=== PATIENT | female | born 1955 | race Caucasian/White ===

== ENCOUNTER → 2021-12-07 10:20 | Outpatient (CLI) | payer MEDICARE, SELFPAY ==
--- NOTE | ~2021-12-07 | XR_ITS ---
EXAM: XR finger 1st LT min 2V DATE: 12/07/2021 10:43 HISTORY: psoriatic arthritis PAIN IN THUMB FOR 1 MONTH NO INJURY . COMPARISON: None available. FINDINGS: Normal mineralization. No fracture or dislocation. No lytic or blastic lesion. Osteoarthri tic change, mild at the trapeziometacarpal and MCP joints, moderate at the interphalangeal joint. No erosion or periosteal change. Soft tissues within normal limits. IMPRESSION: Mild-moderate osteoarthritic change in the left thumb. Reviewed, dictated and finalized at location K.
== END ==
PROVIDERS: PCP Family Medicine
DX: L40.52 Psoriatic arthritis mutilans (principal); R60.9 Edema, unspecified; Z13.89 Encounter for screening for other disorder; M19.042 Primary osteoarthritis, left hand
CPT/HCPCS: 73140

== ENCOUNTER → 2022-08-02 10:46 | Outpatient (CLI) | payer MEDICARE, SELFPAY ==
--- NOTE | ~2022-08-02 | XR_ITS ---
XR hand LT min 3V 08/02/2022 11:18 Indication: Left thumb pain. Swelling. Procedure: 3 views left hand Comparison: 12/07/2021 Findings: There is polyarticular osteoarthritis of the left hand and wrist. No fracture, subluxation or dislocation. No erosive changes. No focal soft tissue abnormality. No foreign bodies. No erosive c hanges. 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 Reviewed, dictated and finalized at location L. 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
== END ==
PROVIDERS: PCP Family Medicine; Visit Provider Plastic Surgery
DX: M10.9 Gout, unspecified (principal); M19.042 Primary osteoarthritis, left hand; M19.032 Primary osteoarthritis, left wrist
CPT/HCPCS: 73130

== ENCOUNTER 2023-10-18 22:24 | Emergency (ER) | payer MEDICARE, SELFPAY ==
--- NOTE | ~2023-10-18 | XR_ITS ---
EXAMINATION: XR chest 1V portable DATE: 10/18/2023 23:37 INDICATION: Near syncope. TECHNIQUE: A single frontal view of the chest was obtained. COMPARISON: Chest 2 views 07/04/16 FINDINGS: There is no pneumonia, pleural effusion, or pneumothorax. The heart size is normal. Partial ly visualized is a fracture of proximal left humerus. IMPRESSION: 1. No acute cardiopulmonary disease. 2. Partially visualized fracture of proximal left humerus. Reviewed, dictated and finalized at location A.
[2023-10-18 22:24] VITALS: BP 175/83; PULSE 87; RESP 14; O2SAT 100
--- NOTE | 2023-10-18 22:30 | ECG_ITS ---
Test Date: 2023-10-18 22:43:36 Measurements Intervals [place] Rate: P: 0 [place]: 0 QRS: 0 QRSD: 0 T: 0 QT: 0 QTc: 0 Interpretive Statements SINUS RHYTHM NORMAL ELECTROCARDIOGRAM No previous ECG available for comparison Electronically Signed On 10-19-2023 13:18:12 CDT by Quinn Neff M.D.
[2023-10-18 22:59] LABS: Basophils Absolute Auto 0.1 K/mm3 (0.0-0.1); Basophils Percent Auto 0.8 % (0.2-1.2); Eosinophils Absolute Auto 0.4 K/mm3 (0-0.3); Eosinophils Percent Auto 3.5 % (0-4.4); Hematocrit 36.9 % (37.0-47.0); Hemoglobin 11.8 g/dL (12.0-15.0); Immature Granulocyte Absolute 0.04 K/mm3 (0.00-0.031); Immature Granulocyte Percent A 0.4 % (0-0.5); Lymphocytes Absolute Auto 3.42 K/mm3 (0.9-3.2); Lymphocytes Percent Auto 32.5 % (18.3-44.2); Mean Corpuscular Hemoglobin 27.8 pg (26-34); Mean Corpuscular Volume 86.8 fl (80-100); Mean Platelet Volume 10.1 fl (7.4-10.4); Monocytes Absolute Auto 0.7 K/mm3 (0.1-0.6); Monocytes Percent Auto 6.9 % (2.6-8.5); Neutrophils Absolute Auto 5.9 K/mm3 (1.3-6.7); Neutrophils Percent Auto 55.9 % (45.5-73.1); Platelet Count Result 356 k/mm3 (150-375); Red Blood Count 4.25 M/mm3 (4.2-5.4); Red Cell Distribution Width 14.3 % (11.5-14.5); White Blood Count 10.5 K/mm3 (4.5-10.0)
[2023-10-18 23:00] VITALS: BP 146/86; PULSE 82; RESP 14; O2SAT 100
[2023-10-18 23:09] LABS: Alanine Aminotransferase 24 U/L (6-35); Albumin Level 4.7 g/dL (3.5-5.1); Alkaline Phosphatase 124 U/L (38-126); Anion Gap 14 mmol/L (4-12); Aspartate Amino Transferase 34 U/L (14-36); Bilirubin,Total 0.4 mg/dL (0.2-1.3); Blood Urea Nitrogen 18 mg/dL (7-17); Calcium 9.5 mg/dL (8.4-10.2); Carbon Dioxide 23 mmol/L (22-30); Chloride 99 mmol/L (98-107); Estimated CRCL calculation 67 ml/min; Estimated Glomerular Filt Rate > 60; Glucose 120 mg/dL (65-110); Potassium 3.9 mmol/L (3.4-5.0); Sodium 136 mmol/L (137-145)
--- NOTE | 2023-10-18 23:31 | ED.DIZZY ---
HPI - Dizziness General Chief Complaint: Syncope Stated Complaint: Near syncope with palpitations Time Seen by Provider: 10/18/23 22:28 Source: patient Mode of arrival: ambulatory Limitations: no limitations History of Present Illness HPI Narrative: This is a 67-year-old female who presents to the ED via EMS for chief complaint of near-syncope. Patient reports that she was standing up and attempting to open a jar. She states that she felt some palpitations that she has been feeling for several years intermittently. She states that this time the palpitations seem to have a long pause in between heartbeats she started hitting her chest because she thought that her heart stopped. Patient states this happens a lot but this time I felt myself going down. States that she became near syncopal was able to lower herself and did not fully syncopize. Reports the episode lasted around 5 minutes in that she is asymptomatic while lying in the gurney. Denies fevers, chills, chest pain, shortness of breath, cough, back pain, abdominal pain, nausea, vomiting, sweats. Related Data Allergies Allergy/AdvReac Type Severity Reaction Status Date / Time No Known Allergies Allergy Unverified 01/13/18 17:13 Review of Systems Review of Systems: All systems as dictated in [facility] Family History Family History (Updated 12/21/16 @ 10:09 by DOCTOR UNKNOWN) Sibling Carcinoma of colon Family history of malignant neoplasm of breast in first degree relative Mother Family history of emphysema, Onset Age: 61 Social History Social History Smoking status: Former smoker Smoking end date: 02/21/88 Alcohol intake: current Exam Narrative: GENERAL: Well-appearing, well-nourished, and in no acute distress. HEAD: Normocephalic, atraumatic. EYES: PERRLA and EOMI. ENT: Nares clear, no rhinorrhea or epistaxis. Mucous membranes moist. Oropharynx without tonsillar hypertrophy exudate or other lesions. NECK: Supple. No adenopathy or masses. CHEST: No respiratory distress. Clear to auscultation. No wheezes rales or rhonchi HEART: Regular rate and rhythm. No murmur heard. Normal peripheral pulses. ABDOMEN: Soft, nontender, nondistended, normal active bowel sounds. MSK: Normal range of motion. No edema. SKIN: Warm, dry, no rash. NEURO: Alert and oriented x4. No focal deficits. PSYCH: Normal mood and affect. Course Vital Signs Vital signs: Vital Signs Pulse Rate 87 10/18/23 22:24 Respiratory Rate 14 10/18/23 22:24 Blood Pressure 175/83 H 10/18/23 22:24 Pulse Oximetry 100 10/18/23 22:24 Oxygen Delivery Room Air 10/18/23 22:24 Pulse Rate 87 10/19/23 01:00 Respiratory Rate 14 10/18/23 22:24 Blood Pressure 129/71 10/19/23 01:00 Pulse Oximetry 100 10/18/23 22:24 Oxygen Delivery Room Air 10/18/23 22:24 MDM - Dizziness MDM Narrative Medical decision making narrative: this is a 67-year-old female who presents to the ED with chief complaint of palpitations and near syncope. Vitals initially show elevated blood pressure but otherwise normal. Exam is benign. She is asymptomatic upon arrival to the ED. no dysrhythmia seen on battery tester field. ECG shows normal sinus rhythm. Troponin normal and lab work is unremarkable. Orthostatic blood pressures were positive today. Chest x-ray is negative. She feels well enough to go home on re-evaluation. Offered admission for cardiac monitoring but patient politely declines. She will follow-up with her PCP. Pt will be discharged in stable condition. Return precautions given and supportive measures discussed. Lab Data 10/18/23 22:46 10/18/23 22:46 Labs: Lab Results 10/18/23 Range/Units 22:46 WBC 10.5 H (4.5-10.0) K/mm3 RBC 4.25 (4.2-5.4) M/mm3 Hgb 11.8 L (12.0-15.0) g/dL Hct 36.9 L (37.0-47.0) % MCV 86.8 (80-100) fl MCH 27.8 (26-34) pg MCHC 32.0 (32-36) g/dl RDW 14.
--- NOTE | 2023-10-19 00:19 | ECG_ITS ---
Test Date: 2023-10-19 00:52:54 Measurements Intervals [place] Rate: 78 P: 54 [place]: 153 QRS: 26 QRSD: 84 T: 44 QT: 379 QTc: 433 Interpretive Statements SINUS RHYTHM NORMAL ELECTROCARDIOGRAM Compared to ECG 10/18/2023 22:43:36 No significant changes Electronically Signed On 10-19-2023 13:19:09 CDT by Quinn Neff M.D.
[2023-10-19 00:24] LABS: Troponin I < 0.012 ng/mL (0.000-0.034)
[2023-10-19 00:56] VITALS: BP 146/86; BP 161/83; PULSE 80; PULSE 89
[2023-10-19 01:00] VITALS: BP 129/71; PULSE 87
== END 2023-10-19 01:15 | disposition home or self-care (01) ==
PROVIDERS: Emergency Provider Physician Assistant
DX: I95.1 Orthostatic hypotension (principal); Z87.891 Personal history of nicotine dependence
CPT/HCPCS: 36415; 71045; 80053; 84484; 85025; 93005; 99284

== ENCOUNTER 2024-01-30 13:15 | Outpatient (CLI) | payer MEDICARE, SELFPAY ==
--- NOTE | ~2024-01-30 | CT_ITS ---
EXAMINATION: CT shoulder LT w con DATE: 01/30/2024 14:59 INDICATION: Left shoulder pain. TECHNIQUE: Computed tomography (CT) of the left shoulder was performed without intravenous contrast a fter intra-articular injection of contrast (CT arthrogram). Automated exposure control and iterative reconstruction technique were employed. The dose-length product was 388.53 mGy-cm. COMPARISON: Chest single view 10/18/2023 FINDINGS: Alignment is normal. There is a healing comminuted fracture of proximal humerus. At the skinny gical neck, the main distal fracture fragment demonstrates impaction. There is a displaced fracture c omponent involving the greater tuberosity at the attachment of infraspinatus tendon. There is heterot opic ossification medial to the lesser tuberosity. The glenohumeral joint demonstrates partial-thickn ess cartilage loss and osteophytes. There is severe acromioclavicular joint osteoarthritis. There is contrast in the glenohumeral joints. Contrast anterior to the glenohumeral joint is likely iatrogenic . There is shallow partial-thickness fraying of supraspinatus and infraspinatus tendons. Contrast pas ses from the glenohumeral joint to the subacromial/subdeltoid bursa at the site of the displaced grea ter tuberosity fracture. The biceps tendon is in bicipital groove. The biceps tendon is normal in mor phology. There is an articular-sided partial thickness tear of subscapularis tendon. IMPRESSION: 1. Healing three-part fracture of proximal left humerus. 2. Articular-sided partial-thickness tears of the rotator cuff. 3. Mild glenohumeral joint chondrosis. 4. Severe acromioclavicular joint osteoarthritis. Reviewed, dictated and finalized at location A. LLIGENCE OPERATIONS SPECIALIST
--- NOTE | ~2024-01-30 | CT_ITS ---
Noncontrast CT scan of the lumbar spine CLINICAL HISTORY: Back pain, sciatica TECHNIQUE: Axial noncontrast imaging of the lumbar spine was performed. Sagittal and coronal reformat jing images were constructed. Dose reduction technique was used on this scan by utilizing automated ex posure control and iterative reconstruction technique. The dose-length product (DLP) was 726.31 mGy-c m. FINDINGS: There is no fracture of the lumbar spine. There is minimal grade 1 retrolisthesis of L3 ove r L4. At L1-L2, there is mild degenerative disc narrowing. No disc bulge or herniation evident. There is mo derate facet arthropathy. No central canal stenosis or neural foraminal narrowing evident. At L2-L3, there is severe degenerative spurring. There is mild disc ossify complex with moderate to a dvanced facet arthropathy. There is mild to moderate central canal stenosis/thecal sac compression. N eural foramina are relatively well-preserved. At L3-L4, there is severe degenerative disc narrowing. There is advanced facet arthropathy with mild disc bulge. There is moderate or spinal canal stenosis/thecal sac compression. There is moderate to a dvanced right neural foraminal narrowing. There is mild left neural foraminal narrowing. At L4-L5, there is severe degenerative disc narrowing. There is disc bulge with moderate to advanced facet arthropathy. There is mild to moderate central canal stenosis. There is severe bilateral neural foraminal narrowing, left worse than right. At L5-S1, there is minimal disc bulge with moderate facet arthropathy. No central canal stenosis. The re is moderate bilateral neural foraminal narrowing. Paravertebral soft tissues are unremarkable. Impression: Moderate to advanced degenerative spondylosis, as detailed above. Minimal grade 1 retrolisthesis of L3 over L4. Reviewed, dictated and finalized at location M. CHECKER Impression: Moderate to advanced degenerative spondylosis, as detailed above. Minimal grade 1 retrolisthesis of L3 over L4.
--- NOTE | ~2024-01-30 | XR_ITS ---
EXAMINATION: XR fl inj shoulder LT - MR/CT DATE: 01/30/2024 14:36 INDICATION: Left shoulder pain TECHNIQUE: A time-out was performed to verify the patient's name, date of , and procedure to b e performed. The procedure including the risks, benefits, and alternatives was discussed with the pat ient. Risks discussed included bleeding and infection. The patient understood the risks and agreed to proceed. The skin overlying the rotator cuff interval the left glenohumeral joint was prepped and d raped in usual sterile fashion. Anesthetic was administered with 1% lidocaine subcutaneously. A 22 G needle was advanced under fluoroscopic guidance into the joint. Injection of 12 mL of 1:1:1 mixtur e of sterile saline:Omnipaque 350:1% lidocaine was performed with intermittent fluoroscopy confirming intra-articular administration. The needle was removed and the entry site was cleaned and dressed. There were no immediate complications. Fluoroscopy exposure time was 0.3 minutes. The total number of images was 125. Total DAP was 0.576 Gycm^2 FINDINGS: Real-time fluoroscopy demonstrates the needle in the left glenohumeral joint. Old impacted fracture deformity of the left humeral head. IMPRESSION: 1. Successful left glenohumeral joint injection of iodinated contrast mixture for subsequent CT arthr ogram which will be dictated separately. Reviewed, dictated and finalized at location A. UP INSPECTOR IMPRESSION: 1. Successful left glenohumeral joint injection of iodinated contrast mixture f or subsequent CT arthrogram which will be dictated separately.
== END 2024-01-30 13:16 | disposition home or self-care (01) ==
LOC: MICIMG 13:17
DX: M19.012 Primary osteoarthritis, left shoulder (principal); M47.896 Other spondylosis, lumbar region
CPT/HCPCS: 23350; 72131; 73201; Q9967